=== PATIENT | male | born 1990 | race Caucasian/White ===

== ENCOUNTER 2018-08-03 19:24 | Inpatient (IN) | payer OTHER | END 2018-08-06 15:47 | disposition home or self-care (01) | LOC: PCU 3S 08-04 00:25 → ER 19:24 | PROC: 0W9B30Z Drainage of Left Pleural Cavity with Drainage Device, Percutaneous Approach (ICD-10-PCS; principal; ~2018-08-03) | DX: S27.0XXA Traumatic pneumothorax, initial encounter (principal); S22.42XA Multiple fractures of ribs, left side, initial encounter for closed fracture; S27.321A Contusion of lung, unilateral, initial encounter ==